=== PATIENT | female | born 1980 | race Caucasian/White ===

== ENCOUNTER 2021-05-25 21:37 | Emergency (ER) | payer MEDICARE, MEDICAID, SELFPAY ==
[2021-05-25 21:43] VITALS: BP 130/82; PULSE 88; RESP 18; TEMP 36.1; O2SAT 100; BMI 28.8
--- NOTE | 2021-05-25 23:20 | PC.NURSE ---
pt states she is unable to urinate at this time
[2021-05-25 23:22] LABS: Basophils # 0.1 10^3/uL (0.0-0.1); Basophils % 0.5 %; Eosinophils # 0.3 10^3/uL (0.0-0.8); Eosinophils % 2.3 %; Hematocrit 40.9 % (37.0-47.0); Hemoglobin 12.7 g/dL (11.5-15.3); Lymphocytes % 25.8 %; Mean Corpuscular HGB Conc 31.1 g/dL (30.0-36.0); Mean Corpuscular Hemoglobin 27.1 pg (28.0-34.0); Mean Corpuscular Volume 87.4 fl (81-99); Mean Platelet Volume 10.3 fL (7.4-10.4); Monocytes # 0.6 10^3/uL (0.2-0.9); Monocytes % 5.4 %; Neutrophils % 65.7 %; Nucleated Red Blood Cells % 0 %; Platelet Count 330 10^3/cmm (130-400); Red Blood Count 4.68 10^6/uL (4.1-5.3); Red Cell Distribution Width 14.2 % (12.1-15.1); White Blood Count 11.6 10^3/uL (4.0-10.0)
[2021-05-25 23:51] LABS: Alanine Aminotransferase 13 U/L (0-33); Alkaline Phosphatase 100 IU/L (35-105); Anion Gap 15.2 (5-19); Aspartate Amino Transferase 14 U/L (0-32); Blood Urea Nitrogen 16 mg/dL (6-20); Calcium 8.6 mg/dL (8.5-10.5); Carbon Dioxide 25 mmol/L (22-29); Chloride 102 mmol/L (98-107); Globulin 2.5 g/dL (1.3-4.6); Glomerular Filtration Rate 60.8 mL/min (90-130); Glucose 89 mg/dL (65-115); NT Pro B Type Natriuretic Pept 43 pg/mL (0-125); Osmolality Calculated 287 mOsm/kg (285-295); Potassium 4.2 mmol/L (3.5-5.1); Sodium 138 mmol/L (136-145); Total Bilirubin 0.2 mg/dL (0.15-1.2); Total Protein 6.5 g/dL (6.6-8.7)
--- NOTE | 2021-05-26 00:09 | USR_ITS ---
PROCEDURE INFORMATION: Exam: US Duplex Lower Extremity Veins, Bilateral Exam date and time: 05/26/2021 12:09 AM Age: 40 years old Clinical indication: Pain; Leg, upper; Left; Additional info: Left lower leg pain and swelling TECHNIQUE: Imaging protocol: Real-time duplex ultrasound of the extremities with 2-D simental scale, color Doppler flow and spectral waveform analysis with image documentation. Complete exam focused on the bilateral lower extremity veins. COMPARISON: No relevant prior studies available. FINDINGS: Evaluated veins include bilateral common femoral, proximal profunda femoral, proximal/mid/distal superficial femoral, popliteal, peroneal, and proximal greater saphenous veins. Right leg: No visible clot in the included veins. The included veins appear normally compressible. Duplex Doppler evaluation demonstrates flow in the evaluated veins. Left leg: There is evidence for left lower extremity deep venous thrombosis. Essentially occluding thrombus is seen in the left common femoral, superficial femoral, popliteal, and peroneal veins. US/[place] [id number] IMPRESSION: 1. Left lower extremity deep venous thrombosis, details above. 2. No evidence of acute right lower extremity deep venous thrombosis.
[2021-05-26] MEDS: enoxaparin 80 mg/0.8 mL Syringe SUBCUT (01:06)
--- NOTE | 2021-05-26 01:12 | ED_ITS ---
HPI - Extremity Problem General: Chief complaint: Extremity Problem,Nontraumatic Stated complaint: Both Legs Swelling Time Seen by Provider: 05/25/21 22:51 History of Present Illness: HPI Narrative: 40-year-old female with a history of DVT and PE. She is supposed to be taking Xarelto for anticoagulation. She notes that she has not been. She presents with left leg swelling and pain for the past few days. No fever. No shortness of breath or chest pain. She denies any long car trips Complaint: extremity pain and extremity swelling Onset (ago): day(s) Location: left and lower extremity Quality: aching Radiation: none Relieving factors: nothing Exacerbating factors: weight bearing Associated symptoms: Reports rash (Some mild redness); Deny chest pain, fever(s) or short of breath Review of Systems Const: Denies: fever(s) Card: Denies: chest pain Resp: Denies: dyspnea, productive cough or non-productive cough Skin/Breast: Reports: rash (Some mild redness) Neuro: Denies: numbness in extremities or weakness in extremities Physical Exam Const: COMMON NORMALS: no acute distress GENERAL APPEARANCE: cooperative and comfortable; not ill appearing HENMT: COMMON NORMALS: normocephalic HEAD & SCALP: normocephalic Chest: COMMONS NORMALS: normal inspection of the chest Resp: COMMON NORMALS: normal respiratory effort, No use of accessory muscles and clear to auscultation bilaterally AUSCULTATION: clear to auscultation bilaterally Cardio: COMMON NORMALS: regular rate and regular rhythm RATE: regular rate RHYTHM: regular rhythm GI: COMMON NORMALS: Normal to inspection, nondistended, normoactive bowel sounds present Extremity: NARRATIVE EXTREMITY EXAM: Examination of the left lower extremity reveals diffuse swelling, essentially nonpitting edema. Mild redness, no warmth. She has pain with palpation of the calf and calf squeeze test. Course Vital Signs: Vital signs: Vital Signs Temperature 96.9 F L 05/25/21 21:43 Pulse Rate 88 05/25/21 21:43 Respiratory Rate 18 05/25/21 21:43 Blood Pressure 130/82 05/25/21 21:43 Pulse Oximetry 100 05/25/21 21:43 MDM - Extremity (Nontraumatic) MDM Narrative: Medical decision making narrative: Ultrasound of the left lower extremity reveals significant DVT from the common femoral through the popliteal into the tibial vein. She has been given a shot of Lovenox here. White blood cell count is 11. Platelet count is normal. Lab Data: Labs: Lab Results 05/25/21 05/25/21 23:06 23:06 WBC 11.6 10^3/uL H 10 ^3/uL (4.0-10.0) RBC 4.68 10^6/uL 10^6 /uL (4.1-5.3) Hgb 12.7 g/dL g/dL (11.5-15.3) Hct 40.9 % % (37.0-47.0) MCV 87.4 fl fl (81-99) MCH 27.1 pg L pg (28.0-34.0) MCHC 31.1 g/dL g/dL (30.0-36.0) RDW 14.2 % % (12.1-15.1) Plt Count 330 10^3/cmm 10^3 /cmm (130-400) MPV 10.3 fL fL (7.4-10.4) Neut % (Auto) 65.7 % % Lymph % (Auto) 25.8 % % Bates % (Auto) 5.4 % % Eos % (Auto) 2.3 % % Baso % (Auto) 0.5 % % Neut # (Auto) 7.60 10^3/uL 10^3 /uL (1.8-7.7) Lymph # (Auto) 3.0 10^3/uL 10^3/ uL (0.8-4.8) Bates # (Auto) 0.6 10^3/uL 10^3/ uL (0.2-0.9) Eos # (Auto) 0.3 10^3/uL 10^3/ uL (0.0-0.8) Baso # (Auto) 0.1 10^3/uL 10^3/ uL (0.0-0.1) Nucleated RBC % (a uto) 0 % % Nucleated RBCs # 0.0 /100WBC /100W BC Sodium 138 mmol/L mmol/L (136-145) Potassium 4.2 mmol/L mmol/L (3.5-5.1) Chloride 102 mmol/L mmol/L (98-107) Carbon Dioxide 25 mmol/L mmol/L (22-29) Anion Gap 15.2 (5-19) BUN 16 mg/dL mg/dL (6-20) Creatinine 1.0 mg/dL H mg/dL (0.5-0.9) GFR Calculation 60.8 mL/min L mL/ min (90-130) Glucose 89 mg/dL mg/dL (65-115) Calculated Osmolal ity 287 mOsm/kg mOsm/ kg (285-295) Calcium 8.6 mg/dL mg/dL (8.5-10.5) Total Bilirubin 0.2 mg/dL mg/dL (0.15-1.2) AST 14 U/L U/L (0-32) ALT 13 U/L U/L (0-33) Alkaline Phosphata se 100 IU/L IU/L (35-105) NT-Pro-B Natriuret Pep 43 pg/mL pg/mL (0-125) Total Protein 6.5 g/dL L g/dL (6.6-8.7) Albumin 4.0 g/dL g/dL (3.5-5.2) Globulin 2.5 g/dL g/dL (1.3-4.6) Discharge Plan Discharge Patient Disposition: Home Clinical Impression: Deep vein thrombosis of lower extremity Qualifiers: Affected thrombotic vein of extremity: unspecified lower extremity proximal vein Chronicity: acute Laterality: left Qualified Code(s): I82.4Y2 - Acute embolism and thrombosis of unspecified deep veins of left proximal lower extremity Condition: Stable Prescriptions: New Xarelto 15 mg tablet 15 mg PO BID 21 Days Qty: 42 RF: 0 hydrocodone-acetaminophen 5-325 mg tablet 1 tab PO Q8H PRN (Reason: pain) Qty: 7 RF: 0 Discharge Orders: Discharge ED (Routine); Ordered 05/26/21 Ordered By: Viraj Richter Discharge Diet: Usual diet Discharge Activity: Increase activity as tolerated Patient Instructions: Deep Vein Thrombosis (ED) Activity Restrictions/Additional Instructions: Return for significant chest pain, shortness of breath, fever, worsening swelling despite treatment, other concerning symptoms. Call your doctor Thursday morning for an appointment next week. 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
[2021-05-26 01:34] VITALS: RESP 14
[2021-05-26] MEDS: oxyCODONE-APAP 5-325 mg Tablet 2 TAB PO (01:34)
== END 2021-05-26 01:37 | disposition home or self-care (01) ==
PROVIDERS: Physician Assistant; Emergency Provider Emergency Medicine
DX: I82.412 Acute embolism and thrombosis of left femoral vein (principal); Z86.718 Personal history of other venous thrombosis and embolism; Z86.711 Personal history of pulmonary embolism; Z91.14 Patient's other noncompliance with medication regimen
CPT/HCPCS: 80053; 83880; 85025; 93970; 96372; 99283; J1650

== ENCOUNTER 2021-05-26 10:34 | Emergency (ER) | payer MEDICARE, MEDICAID, SELFPAY ==
[2021-05-26 11:21] VITALS: BP 114/80; PULSE 80; RESP 16; TEMP 36.4; O2SAT 99; BMI 28.8
--- NOTE | 2021-05-26 11:26 | PC.NURSE ---
patient states she doesnt want to kill herself, when she gets overwhelmed she just starts crying, states she has an apartment set up for next month but got here early
--- NOTE | 2021-05-26 11:36 | ED.C_ITS ---
HPI - Psych General: Chief Complaint: Psychiatric Symptoms Stated Complaint: depression, wants NPU due to no ride Time Seen by Provider: 05/26/21 11:31 Source: patient History of Present Illness: HPI Narrative: 40 year old female presents to the ER after sleeping in the waitingroom last night. She presents back in as she has no ride home reporting that she is depressed. She reports that she is no homicidal or suicidal and reports no plan. She reports depression that his ongoing for the past 4 years in which she is on no medications for. Pt otherwise has no complaints. MD complaint: feels depressed Onset (ago): year(s) (4) Duration: constant History of same: Yes Relieving factors: none Exacerbating factors: none Associated symptoms: Reports depression; Deny homicidal ideation or suicidal ideation Treatments prior to arrival: none If self harm: admits thoughts of self harm, has plan, has acted on plan, intentional overdose and self-inflicted trauma Review of Systems General: Reports: 10 or more systems reviewed and unremarkable except in HPI and below Const: Denies: fever(s), chills, fatigue or malaise Eyes: Denies: change in vision or blurry vision Card: Denies: chest pain or palpitations Resp: Denies: dyspnea or productive cough GI: Denies: abdominal pain, nausea or vomiting : Denies: flank pain Musc: Denies: extremity pain or extremity swelling Skin/Breast: Denies: rash or pruritus Neuro: Denies: headache(s) Psych: Reports: depression; Denies: anxiety, suicidal ideation or homicidal ideation [place]/Lymph: Denies: easy bleeding All/Imm: Denies: urticaria, throat swelling or facial swelling Physical Exam Narrative: EXAM NARRATIVE: pt appears nontoxic resting on the cot in no obvious acute distress Const: COMMON NORMALS: no acute distress, patient oriented x3 and healthy appearing HENMT: COMMON NORMALS: normocephalic and atraumatic HEAD & SCALP: normocephalic and atraumatic Eye: COMMON NORMALS: Equal, round and reactive pupils present and EOMs intact bilaterally PUPIL: Yes Equal, round and reactive pupils present Neck/C-Spine: COMMON NORMALS: full ROM, supple and no JVD Lymph: LYMPHATIC: no lymphadenopathy noted Chest: COMMONS NORMALS: normal inspection of the chest and normal palpation of entire chest wall Resp: COMMON NORMALS: normal respiratory effort, No retractions and clear to auscultation bilaterally EFFORT & INSPECTION: Yes able to speak in complete sentences and Yes symmetric chest movement AUSCULTATION: clear to ausc ultation bilaterally Cardio: COMMON NORMALS: no JVD, regular rate and regular rhythm RATE: regular rate RHYTHM: regular rhythm : COMMON NORMALS: Yes no CVA tenderness BLADDER/KIDNEY EXAM: Yes no CVA tenderness Back/Pelvis: COMMON NORMALS: no CVA tenderness Extremity: COMMON NORMALS: normal to inspection and full ROM Neuro: COMMON NORMALS: patient oriented x3, CN's II-XII intact bilaterally, moves all extremities and no focal motor deficits Psych: COMMON NORMALS: mental status grossly normal, Normal thought process present, cooperative, normal affect, speech normal, activity/motor behavior normal, denies hallucinations, denies homicidal ideation and denies suicidal ideation SPEECH: Yes normal speech THOUGHT PROCESS: Normal thought process present Skin: COMMON NORMALS: no rashes or lesions noted GENERAL SKIN EXAM: no rashes or lesions noted Course ED course: after assessing the patient. Pt requsted that she wanted to be admitted to the psychiatric unit. I reported to her that as she is not homicidal or suicidal that she does not qualify for inpatient admission . However, I could provide her with some resources for multiple options including community resources upon patient reporting that she reports now that she is suicidal she reports no plan she reports that she wants to be accepted to the inpatient unit again I instructed the patient that she is now malingering in which the main reason why she is checking back in is she currently has no ride is which no family can be picking her up I did offer her additional community resources that she refused patient was seen leaving the emergency department prior to formal discharge in which she could be provided these resources. Patient appeared in no obvious distress prior to subsequent verbal discharge. Patient was offered antidepressants as well as antianxiolytics that may provide her additional help which she did adamantly refused. Vital Signs: Vital signs: Vital Signs Temperature 97.6 F 05/26/21 11:21 Pulse Rate 80 05/26/21 11:21 Respiratory Rate 16 05/26/21 11:21 Blood Pressure 114/80 05/26/21 11:21 Pulse Oximetry 99 05/26/21 11:21 Discharge Plan Discharge Patient Disposition: Home Clinical Impression: Depression Condition: Stable Prescriptions: No Action Xarelto 15 mg tablet 15 mg PO BID 21 Days Qty: 42 RF: 0 hydrocodone-acetaminophen 5-325 mg tablet 1 tab PO Q8H PRN (Reason: pain) Qty: 7 RF: 0 Discharge Orders: Discharge ED (Routine); Ordered 05/26/21 Ordered By: Krish Cui Discharge Diet: Advance as tolerated Discharge Activity: Resume usual activity Patient Instructions: Opioid Safety Coding Level of Care Code 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
== END 2021-05-26 11:40 | disposition home or self-care (01) ==
PROVIDERS: Emergency Provider Emergency Medicine
DX: F32.A Depression, unspecified (principal); Z76.5 Malingerer [conscious simulation]; Z79.891 Long term (current) use of opiate analgesic; Z79.01 Long term (current) use of anticoagulants
CPT/HCPCS: 99282